=== PATIENT | male | born 1985 | race Caucasian/White ===

== ENCOUNTER 2016-06-10 03:31 | Emergency (ER) | payer SELFPAY ==
[~2016-06-10] VITALS: Ht 172.7 cm; Wt 81.8 kg
[2016-06-10 03:38] VITALS: BP 167/89
== END 2016-06-10 04:52 | disposition left against medical advice (07) ==
LOC: EMS 03:33
DX: R51 Headache (principal); F17.210 Nicotine dependence, cigarettes, uncomplicated; Z53.21 Procedure and treatment not carried out due to patient leaving prior to being seen by health care provider